=== PATIENT | male | born 1980 | race Caucasian/White ===

== ENCOUNTER 2016-12-18 21:00 | Inpatient (IN) | payer MEDICAID ==
[~2016-12-18] VITALS: Ht 185.4 cm; Wt 116.0 kg
[~2016-12-18 21:00] MED LIST: DOXY-168 PO; FURO-93 PO; LORA-445 PO; SULF1TAB24 PO; TRAZ100T15 PO; valium; zoloft
[2016-12-18] MEDS ORDERED: FAMOTIDINE 20 MG/2 ML ONE (21:43)
[2016-12-18] MEDS ORDERED: MAALOX/HYOSCYAMINE/LIDOCAINE 45 ML BOTTLE ONE (21:43)
[2016-12-18] MEDS ORDERED: ONDANSETRON 2MG/ML, 2ML ONE (21:43)
[2016-12-18 22:00] LABS: ASPARTATE AMINO TRANSFERASE 115 U/L (15-37); BLOOD UREA NITROGEN 13 mg/dL (7-18)
[2016-12-18] MEDS ORDERED: FAMOTIDINE 20 MG/2 ML IVP ONE (22:00)
[2016-12-18] MEDS ORDERED: MAALOX/HYOSCYAMINE/LIDOCAINE 45 ML BOTTLE PO ONE (22:00)
[2016-12-18] MEDS ORDERED: ONDANSETRON 2MG/ML, 2ML IVPush ONE (22:00)
[2016-12-18] MEDS ORDERED: SODIUM CHLORIDE 0.9% 1,000ML IVBOLUS ONE (22:00)
[2016-12-18 22:33] LABS: IS PT STATUS REG ER OR PRE ER? YES
[2016-12-18] MEDS ORDERED: SODIUM CHLORIDE 0.9% 1,000 ML IV ONE (23:04)
[2016-12-18] MEDS ORDERED: PROMETHAZINE 25 MG/ML, 1ML IM PRN (23:30)
[2016-12-18] MEDS ORDERED: ONDANSETRON 2MG/ML, 2ML IVPush PRN (23:30)
[2016-12-18] MEDS ORDERED: THYROID MED (23:53)
[2016-12-19] MEDS ORDERED: POTASSIUM CHLORIDE 10 MEQ, MVI ADULT 10 ML, FOLIC ACID 1 MG, MAGNESIUM SULFATE 1 GM in ... IV SCH (00:40)
[2016-12-19] MEDS ORDERED: ONDANSETRON 2MG/ML, 2ML ONE (00:42)
[2016-12-19] MEDS ORDERED: PROMETHAZINE 12.5 MG SUPP PR PRN (01:00)
[2016-12-19] MEDS ORDERED: ONDANSETRON 2MG/ML, 2ML IV PRN (01:00)
[2016-12-19] MEDS ORDERED: DIPHENHYDRAMINE 50 MG CAPSULE PO PRN (01:00)
[2016-12-19] MEDS ORDERED: LORazepam 2 MG/ML, 1ML IV PRN ×5 (01:00)
[2016-12-19] MEDS ORDERED: ALUMINUM/MAG/SIMETHICONE 30 ML UDC PO PRN (01:00)
[2016-12-19] MEDS ORDERED: NICOTINE 7 MG/24 HR PATCH.TD24 TD SCH (01:00)
[2016-12-19] MEDS ORDERED: HEPARIN 5,000 UNITS/ML, 1ML ONE ×2 (01:26→12:11)
[2016-12-19] MEDS: HEPARIN 5,000 UNITS/ML, 1ML SQ SCH ×2 (02:22→13:25)
[2016-12-19] MEDS ORDERED: MORPHINE SULFATE 4 MG/ML, 1ML ONE ×3 (03:13→13:19)
[2016-12-19] MEDS ORDERED: DIPHENHYDRAMINE 50 MG CAPSULE ONE (03:14)
[2016-12-19] MEDS: MORPHINE SULFATE 4 MG/ML, 1ML IVPush PRN ×3 (03:25→13:24)
[2016-12-19 05:17] LABS: IS PT STATUS REG ER OR PRE ER? YES
[2016-12-19] MEDS ORDERED: PANTOPRAZOLE 40 MG IV IVPush SCH (07:30)
[2016-12-19] MEDS ORDERED: PANTOPRAZOLE 40 MG IV ONE (07:45)
[2016-12-19] MEDS ORDERED: MAGNESIUM CHLORIDE 64 MG TABLET.DR PO SCH (09:00)
[2016-12-19] MEDS ORDERED: FUROSEMIDE 20 MG TABLET PO SCH (09:00)
[2016-12-19 10:13] LABS: IS PT STATUS REG ER OR PRE ER? NO
[2016-12-19] MEDS ORDERED: REGADENOSON 0.4 MG/5 ML SYRINGE ONE (10:50)
[2016-12-19] MEDS ORDERED: CEFAZOLIN PMX 1GM/50ML 50 ML ONE (13:40)
[2016-12-19] MEDS ORDERED: SULFAMETH./TRIMETHOPRIM DS 800MG/160MG TABLET ONE (13:40)
[2016-12-19 13:56] VITALS: BP 117/65
[2016-12-19] MEDS ORDERED: TRAM50TA2 PO (14:09)
[2016-12-19] MEDS ORDERED: OMEP-110 PO (14:09)
[2016-12-19] MEDS ORDERED: POTA10TA5 PO (15:37)
[2016-12-20] MEDS ORDERED: POTASSIUM CHLORIDE 20 MEQ, MVI ADULT 10 ML, FOLIC ACID 1 MG, MAGNESIUM SULFATE 1 GM in ... IV SCH (00:40)
== END 2016-12-19 16:27 | disposition home or self-care (01) | DRG 392 ==
LOC: ED 22:54 → EDIP 23:04
PROVIDERS: ADMIT Internal Medicine; ATTEND Internal Medicine
DX: K21.9 Gastro-esophageal reflux disease without esophagitis (principal); E44.1 Mild protein-calorie malnutrition; E11.9 Type 2 diabetes mellitus without complications; E66.9 Obesity, unspecified; F10.20 Alcohol dependence, uncomplicated; F17.210 Nicotine dependence, cigarettes, uncomplicated; I10 Essential (primary) hypertension; K29.20 Alcoholic gastritis without bleeding; K70.30 Alcoholic cirrhosis of liver without ascites; Z80.9 Family history of malignant neoplasm, unspecified; Z83.3 Family history of diabetes mellitus; Z88.1 Allergy status to other antibiotic agents; Z88.0 Allergy status to penicillin; Z68.33 Body mass index [BMI] 33.0-33.9, adult
CPT/HCPCS: 36415; 71010; 78452; 80053; 80307; 83690; 83735; 83880; 84439; 84443; 84484; 85025; 93005; 93017; 93970; 99285; J1644; J2405; J2785; A9502; C9113; C9898; J7030; S0028

== ENCOUNTER → 2017-07-01 | Outpatient (CLI) | payer MEDICAID ==
[~2017-07-01] MED LIST changes: +ALPR0.254 PO; +ASPI-621 PO; -DOXY-168 PO; +DOXY100T10 PO; +FURO20TA3 PO; +GABA300C10 PO; +LACT10SO28 PO; +LEVO75TA5 PO; +OMEP-110 PO; +POTA10TA5 PO; +SPIR25TA3 PO; +THYROID MED; +TRAM50TA2 PO; +TRAZ50TA18 PO
== END | disposition home or self-care (01) ==
LOC: CARD 15:13
PROVIDERS: ATTEND Internal Medicine Cardiovascular Disease
DX: I27.0 Primary pulmonary hypertension (principal)
CPT/HCPCS: 94060; 94726; 94729

== ENCOUNTER 2017-07-07 11:17 | Day surgery (SDC) | payer MEDICAID ==
[2017-07-04 14:16] VITALS: BP 129/90
[2017-07-04 14:54] LABS: BASOPHILS # (AUTO) 0.03 x10^3/uL (0-0.1); BASOPHILS % (AUTO) 1 % (0-1); EOSINOPHILS # (AUTO) 0.09 x10^3/uL (0-0.4); EOSINOPHILS % (AUTO) 2 % (1-7); LYMPHOCYTES # (AUTO) 1.48 x10^3/uL (1-3.4); LYMPHOCYTES % (AUTO) 31 % (22-44); MD NO; MEAN CORPUSCULAR HEMOGLOBIN 31.5 pg (27.5-34.5); MEAN CORPUSCULAR HGB CONC 34.9 g/dL (33.2-36.2); MEAN PLATELET VOLUME 9.4 fL (7.4-10.4); MONOCYTES # (AUTO) 0.38 x10^3/uL (0.2-0.8); MONOCYTES % (AUTO) 8 % (2-9); NEUTROPHILS # (AUTO) 2.85 x10^3/uL (1.8-6.8); NEUTROPHILS % (AUTO) 59 % (42-75); PLATELET COUNT 113 x10^3/uL (130-400); RED CELL DISTRIBUTION WIDTH 16.2 % (9.4-14.8)
[2017-07-04 14:59] LABS: INTERNATIONAL NORMALIZED RATIO 1.29 (0.93-1.1); PROTHROMBIN TIME 13.3 Seconds (9.6-11.5)
[2017-07-04 15:02] LABS: ANION GAP 10 mmol/L (5-15); CALCIUM 8.3 mg/dL (8.5-10.1); CHLORIDE 109 mmol/L (98-107)
[~2017-07-07] VITALS: Ht 185.4 cm; Wt 122.7 kg
[2017-07-07] MEDS ORDERED: SODIUM CHLORIDE 0.9% 1,000 ML IV ONE (11:36)
[2017-07-07] MEDS ORDERED: DIPHENHYDRAMINE 50 MG/ML, 1ML ONE (11:52)
[2017-07-07] MEDS ORDERED: SODIUM CHLORIDE 0.9% 500 ML IV SCH (12:00)
[2017-07-07] MEDS ORDERED: DIPHENHYDRAMINE 50 MG/ML, 1ML IVPush ONE (12:00)
[2017-07-07] MEDS ORDERED: METO50TA82 PO (12:13)
[2017-07-07] MEDS ORDERED: MIDAZOLAM 1 MG/ML, 2ML ONE ×2 (13:59→14:21)
[2017-07-07] MEDS ORDERED: FENTANYL PF 100 MCG/2ML ONE (14:00)
[2017-07-07] MEDS ORDERED: LIDOCAINE 2%, 20ML ONE (14:00)
[2017-07-07] MEDS ORDERED: VERAPAMIL 2.5 MG/ML, 2ML ONE (14:24)
[2017-07-07] MEDS ORDERED: HEPARIN 1,000 UNITS/ML, 10ML ONE (14:25)
[2017-07-07] MEDS ORDERED: ADENOSINE IV PRN (15:00)
[2017-07-07] MEDS ORDERED: SODIUM CHLORIDE 0.9% IV PRN (15:00)
[2017-07-07] MEDS ORDERED: SODIUM CHLORIDE 0.9% 1,000 ML IV SCH (15:19)
[2017-07-07] MEDS ORDERED: FENTANYL PF 100 MCG/2ML IVPush PRN (16:00)
[2017-07-07] MEDS ORDERED: NEOSPORIN OINT. PKT 1 PACKET TP ONE (17:30)
== END 2017-07-07 18:25 ==
LOC: CACL 11:17
PROVIDERS: ATTEND Internal Medicine Cardiovascular Disease
DX: I27.0 Primary pulmonary hypertension (principal); Z79.82 Long term (current) use of aspirin; Z88.0 Allergy status to penicillin; Z72.89 Other problems related to lifestyle; Z79.01 Long term (current) use of anticoagulants
CPT/HCPCS: 36415; 80048; 83880; 85025; 85610; 85730; 93460; 93463; 99156; 99157; C1769; C1894; J1200; J1644; J2250; J3010; J3490; Q9967

== ENCOUNTER → 2018-06-11 | Outpatient (CLI) | payer MEDICAID ==
[~2018-06-11] MED LIST changes: -ASPI-621 PO; +ASPI81TA45 PO; +BUPIVACAINE 0.25% ONE; +EPINEPHRINE 1 MG/ML, 1ML ONE; +INDIGO CARMINE 0.8%, 5ML ONE; +METO50TA82 PO; -SPIR25TA3 PO; +SPIR25TA5 PO; +THROMBIN 5,000 UNIT VIAL TP ONE; +TRAZ-137 PO; -TRAZ100T15 PO; -TRAZ50TA18 PO; +TRAZ50TA66 PO
== END | disposition home or self-care (01) ==
LOC: CVU 08:13
PROVIDERS: ATTEND Internal Medicine Cardiovascular Disease
DX: I08.1 Rheumatic disorders of both mitral and tricuspid valves (principal); I27.0 Primary pulmonary hypertension
CPT/HCPCS: 0399T; 93306; J0171; J3490

== ENCOUNTER 2018-07-26 12:42 | Inpatient (IN) | payer MEDICAID ==
[~2018-07-26] VITALS: Ht 185.4 cm; Wt 143.0 kg
[~2018-07-26 12:42] MED LIST changes: -BUPIVACAINE 0.25% ONE; -EPINEPHRINE 1 MG/ML, 1ML ONE; -INDIGO CARMINE 0.8%, 5ML ONE; -THROMBIN 5,000 UNIT VIAL TP ONE
--- NOTE | 2018-07-26 12:55 | NUR ---
PT TO LOBBY IN .
[2018-07-26] MEDS ORDERED: ONDANSETRON 2MG/ML, 2ML IVPush ONE (13:30)
[2018-07-26 13:49] LABS: ALANINE AMINOTRANSFERASE 30 U/L (12-78); ALBUMIN 2.8 g/dL (3.4-5.0); ANION GAP 8 mmol/L (5-15); CALCIUM 8.1 mg/dL (8.5-10.1); CHLORIDE 110 mmol/L (98-107); CREATININE 0.79 mg/dL (0.7-1.3)
[2018-07-26] MEDS ORDERED: MORPHINE SULFATE 4 MG/ML, 1ML ONE ×2 (13:49→15:07)
[2018-07-26] MEDS: MORPHINE SULFATE 4 MG/ML, 1ML IVPush PRN ×2 (13:51→15:10)
[2018-07-26 13:52] LABS: ALKALINE PHOSPHATASE 88 U/L (45-117); BASOPHILS # (AUTO) 0.01 x10^3/uL (0-0.1); BASOPHILS % (AUTO) 0 % (0-1); BILIRUBIN,TOTAL 1.4 mg/dL (0.2-1.0); EOSINOPHILS # (AUTO) 0.02 x10^3/uL (0-0.4); EOSINOPHILS % (AUTO) 1 % (1-7); LYMPHOCYTES # (AUTO) 0.69 x10^3/uL (1-3.4); LYMPHOCYTES % (AUTO) 16 % (22-44); MD SCAN; MEAN CORPUSCULAR HEMOGLOBIN 30.1 pg (27.5-34.5); MEAN CORPUSCULAR HGB CONC 34.2 g/dL (33.2-36.2); MEAN CORPUSCULAR VOLUME 88.2 fL (81-97); MEAN PLATELET VOLUME 8.6 fL (7.4-10.4); MONOCYTES # (AUTO) 0.34 x10^3/uL (0.2-0.8); MONOCYTES % (AUTO) 8 % (2-9); NEUTROPHILS # (AUTO) 3.29 x10^3/uL (1.8-6.8); NEUTROPHILS % (AUTO) 76 % (42-75); PLATELET COUNT 93 x10^3/uL (130-400); RED BLOOD COUNT 4.57 x10^6/uL (4.38-5.82); RED CELL DISTRIBUTION WIDTH 15.5 % (9.4-14.8); TOTAL PROTEIN 6.7 g/dL (6.4-8.2)
[2018-07-26 13:57] LABS: INTERNATIONAL NORMALIZED RATIO 1.26 (0.93-1.1); PROTHROMBIN TIME 13.2 Seconds (9.6-11.5)
[2018-07-26] MEDS ORDERED: ACETAMINOPHEN 500 MG TABLET ONE (14:26)
[2018-07-26] MEDS ORDERED: ACETAMINOPHEN 500 MG TABLET PO ONE (14:30)
[2018-07-26] MEDS ORDERED: SODIUM CHLORIDE 0.9% 1,000ML IVBOLUS ONE (14:30)
--- NOTE | 2018-07-26 14:30 | NUR ---
HANDOFF REPORT FROM JONATHAN MUNIZ. PT RESTING ON GURCECILIA. MEDICATED FOR FEVER. IVF INFUSING. SPO2 IN PLACE. PT RESTING ON GURYELLOW SPRINGS. CALL LIGHT IN REACH. AWAITING US RESULTS.
[2018-07-26] MEDS ORDERED: LIDOCAINE 1%-EPI 1:100K, 20ML INFIL ONE (15:00)
[2018-07-26] MEDS ORDERED: CLINDAMYCIN PMX 900MG/50ML 50 ML IV ONE (15:00)
[2018-07-26] MEDS ORDERED: LIDOCAINE-MPF 1%, 5ML ONE (15:07)
[2018-07-26] MEDS ORDERED: LIDOCAINE 1%-EPI 1:100K, 20ML ONE (15:14)
[2018-07-26] MEDS ORDERED: CLINDAMYCIN PMX 900MG/50ML 50 ML ONE (15:45)
--- NOTE | 2018-07-26 15:52 | NUR ---
IV ABX INFUSING PER ORDER. MD TO BEDSIDE TO UPDATE PT ON POC AND PT AGREES. PT RESTING ON GURNEY. CALL LIGHT IN REACH. PT TO BE ADMIT. ALL CONCERNS ADRESSED.
[2018-07-26] MEDS ORDERED: POLYETHYLENE GLYCOL 17 GM PACKET PO PRN (16:30)
[2018-07-26] MEDS ORDERED: BISACODYL 10 MG SUPP PR PRN (16:30)
[2018-07-26] MEDS ORDERED: hydrALAzine 20 MG/ML, 1ML IVPush PRN (16:30)
[2018-07-26] MEDS ORDERED: ONDANSETRON 2MG/ML, 2ML IVPush PRN (16:30)
[2018-07-26] MEDS ORDERED: BACLOFEN 10 MG TABLET PO PRN (16:30)
[2018-07-26] MEDS ORDERED: DOCUSATE 100 MG CAPSULE PO PRN (16:30)
[2018-07-26] MEDS ORDERED: ACETAMINOPHEN 325 MG TABLET PO PRN (16:30)
[2018-07-26] MEDS ORDERED: GABAPENTIN 300 MG CAPSULE PO PRN (16:30)
[2018-07-26] MEDS ORDERED: VANCOMYCIN PER PHARMACY MC PRN (16:30)
[2018-07-26] MEDS ORDERED: TRAZODONE 50MG TABLET PO PRN (17:00)
--- NOTE | 2018-07-26 17:18 | NUR ---
FLOAT RN:PATIENT PLACED ON 2L NC AFTER DESAT TO 88% WITH GOOD WAVEFORM. PATIENT WAKES EASILY AND SATURATION REUTRNS TO 92%. PRIMARY RN, HI MARETL
--- NOTE | 2018-07-26 17:29 | NUR ---
REPORT TO DIDI MUNIZ.
[2018-07-26 18:34] VITALS: BP 113/60
[2018-07-26] MEDS ORDERED: PHARMACOKINETIC MONITORING MC PRN (19:00)
[2018-07-26] MEDS ORDERED: VANCOMYCIN 2,500 MG in SODIUM CHLORIDE 0.9% 500 ML IV ONE (19:00)
[2018-07-26] MEDS ORDERED: PHARMACOKINETIC CONSULTATION MC ONE (19:00)
[2018-07-26] MEDS: ENOXAPARIN 40 MG/0.4 ML SQ SCH (20:04)
[2018-07-26] MEDS: CEFTRIAXONE PMX 1GM/50ML 50 ML IV SCH (20:04)
[2018-07-26] MEDS: NS + 20MEQ KCL 1,000 ML IV SCH (20:04)
[2018-07-26 22:10] LABS: RAPID INFLUENZA A Negative (Negative); RAPID INFLUENZA B Negative (Negative)
[2018-07-26] MEDS: LACTULOSE 10 GM/15 ML UDC PO SCH (23:21)
[2018-07-26] MEDS: METOPROLOL TARTRATE 50 MG TABLET PO SCH (23:22)
[2018-07-27 02:47] VITALS: BP 125/64
[2018-07-27 05:28] LABS: MEAN CORPUSCULAR HEMOGLOBIN 30.2 pg (27.5-34.5); MEAN CORPUSCULAR HGB CONC 34.2 g/dL (33.2-36.2); MEAN CORPUSCULAR VOLUME 88.3 fL (81-97); MEAN PLATELET VOLUME 8.6 fL (7.4-10.4); PLATELET COUNT 93 x10^3/uL (130-400); RED BLOOD COUNT 4.16 x10^6/uL (4.38-5.82); RED CELL DISTRIBUTION WIDTH 15.7 % (9.4-14.8)
[2018-07-27 05:30] LABS: ALBUMIN 2.5 g/dL (3.4-5.0); ANION GAP 7 mmol/L (5-15); CALCIUM 7.5 mg/dL (8.5-10.1); CHLORIDE 112 mmol/L (98-107)
[2018-07-27 05:36] LABS: ALANINE AMINOTRANSFERASE 25 U/L (12-78); ALKALINE PHOSPHATASE 81 U/L (45-117); BILIRUBIN,TOTAL 1.5 mg/dL (0.2-1.0); CREATININE 0.72 mg/dL (0.7-1.3); TOTAL PROTEIN 6.1 g/dL (6.4-8.2)
[2018-07-27] MEDS: GABAPENTIN 300 MG CAPSULE PO PRN ×2 (05:37→16:44)
[2018-07-27 05:56] LABS: BASOPHILS # (AUTO) 0.02 x10^3/uL (0-0.1); BASOPHILS % (AUTO) 0 % (0-1); EOSINOPHILS # (AUTO) 0.07 x10^3/uL (0-0.4); EOSINOPHILS % (AUTO) 2 % (1-7); LYMPHOCYTES # (AUTO) 0.69 x10^3/uL (1-3.4); LYMPHOCYTES % (AUTO) 20 % (22-44); MD SCAN; MONOCYTES # (AUTO) 0.29 x10^3/uL (0.2-0.8); MONOCYTES % (AUTO) 8 % (2-9); NEUTROPHILS # (AUTO) 2.41 x10^3/uL (1.8-6.8); NEUTROPHILS % (AUTO) 70 % (42-75)
[2018-07-27] MEDS: KETOROLAC 30 MG/1 ML IV PRN ×2 (06:26→14:18)
[2018-07-27 06:36] VITALS: BP 119/76
[2018-07-27] MEDS: FUROSEMIDE 20 MG TABLET PO SCH (08:56)
[2018-07-27] MEDS: ASPIRIN 81 MG TABLET EC PO SCH (08:56)
[2018-07-27] MEDS: METOPROLOL TARTRATE 50 MG TABLET PO SCH ×2 (08:56→21:07)
[2018-07-27] MEDS: SPIRONOLACTONE 25 MG TABLET PO SCH (08:57)
[2018-07-27] MEDS: LEVOTHYROXINE 75 MCG TABLET PO SCH (08:57)
[2018-07-27] MEDS: LACTULOSE 10 GM/15 ML UDC PO SCH ×2 (08:57→21:06)
[2018-07-27] MEDS: NS + 20MEQ KCL 1,000 ML IV SCH (09:00)
[2018-07-27] MEDS: VANCOMYCIN 2,000 MG in SODIUM CHLORIDE 0.9% 500 ML IV SCH ×2 (10:26→22:10)
[2018-07-27 14:04] VITALS: BP 132/70
[2018-07-27] MEDS: CEFTRIAXONE PMX 1GM/50ML 50 ML IV SCH (16:44)
[2018-07-27 19:22] VITALS: BP 130/82
[2018-07-27] MEDS: ENOXAPARIN 40 MG/0.4 ML SQ SCH (21:06)
[2018-07-28 01:26] VITALS: BP 131/69
[2018-07-28] MEDS: KETOROLAC 30 MG/1 ML IV PRN ×2 (02:48→11:38)
[2018-07-28] MEDS: GABAPENTIN 300 MG CAPSULE PO PRN ×2 (04:39→16:22)
[2018-07-28 05:26] LABS: MEAN CORPUSCULAR VOLUME 88.2 fL (81-97); MEAN PLATELET VOLUME 8.5 fL (7.4-10.4); PLATELET COUNT 88 x10^3/uL (130-400); RED BLOOD COUNT 4.03 x10^6/uL (4.38-5.82); RED CELL DISTRIBUTION WIDTH 15.5 % (9.4-14.8)
[2018-07-28 05:32] LABS: ANION GAP 8 mmol/L (5-15); CALCIUM 7.5 mg/dL (8.5-10.1); CHLORIDE 115 mmol/L (98-107); CREATININE 0.71 mg/dL (0.7-1.3)
[2018-07-28 06:11] LABS: BASOPHILS # (AUTO) 0.01 x10^3/uL (0-0.1); BASOPHILS % (AUTO) 1 % (0-1); EOSINOPHILS # (AUTO) 0.07 x10^3/uL (0-0.4); EOSINOPHILS % (AUTO) 3 % (1-7); LYMPHOCYTES # (AUTO) 0.59 x10^3/uL (1-3.4); LYMPHOCYTES % (AUTO) 24 % (22-44); MD SCAN; MONOCYTES % (AUTO) 8 % (2-9); NEUTROPHILS # (AUTO) 1.65 x10^3/uL (1.8-6.8); NEUTROPHILS % (AUTO) 65 % (42-75)
[2018-07-28] MEDS: LEVOTHYROXINE 75 MCG TABLET PO SCH (06:15)
[2018-07-28 08:40] VITALS: BP 145/73
[2018-07-28] MEDS: ASPIRIN 81 MG TABLET EC PO SCH (09:00)
[2018-07-28] MEDS: LACTULOSE 10 GM/15 ML UDC PO SCH ×2 (09:00→20:01)
[2018-07-28] MEDS: METOPROLOL TARTRATE 50 MG TABLET PO SCH ×2 (09:00→20:01)
[2018-07-28] MEDS: SPIRONOLACTONE 25 MG TABLET PO SCH (09:00)
[2018-07-28] MEDS: FUROSEMIDE 20 MG TABLET PO SCH (09:01)
[2018-07-28] MEDS ORDERED: GADOBUTROL 10 MMOL/10 ML PFS ONE (10:43)
[2018-07-28] MEDS: VANCOMYCIN 2,000 MG in SODIUM CHLORIDE 0.9% 500 ML IV SCH (11:38)
[2018-07-28 13:44] VITALS: BP 133/74
[2018-07-28] MEDS: CEFTRIAXONE PMX 1GM/50ML 50 ML IV SCH (16:22)
[2018-07-28 19:05] VITALS: BP 130/75
[2018-07-28] MEDS: ENOXAPARIN 40 MG/0.4 ML SQ SCH (19:34)
[2018-07-29] MEDS: VANCOMYCIN 2,000 MG in SODIUM CHLORIDE 0.9% 500 ML IV SCH ×3 (00:03→23:47)
[2018-07-29 02:00] VITALS: BP 127/77
[2018-07-29] MEDS: KETOROLAC 30 MG/1 ML IV PRN ×3 (05:33→21:04)
[2018-07-29] MEDS: LEVOTHYROXINE 75 MCG TABLET PO SCH (05:33)
[2018-07-29 05:51] LABS: BASOPHILS # (AUTO) 0.02 x10^3/uL (0-0.1); BASOPHILS % (AUTO) 1 % (0-1); EOSINOPHILS # (AUTO) 0.07 x10^3/uL (0-0.4); EOSINOPHILS % (AUTO) 2 % (1-7); LYMPHOCYTES # (AUTO) 0.64 x10^3/uL (1-3.4); LYMPHOCYTES % (AUTO) 21 % (22-44); MD NO; MEAN CORPUSCULAR HEMOGLOBIN 29.9 pg (27.5-34.5); MEAN CORPUSCULAR HGB CONC 34.3 g/dL (33.2-36.2); MEAN CORPUSCULAR VOLUME 87.1 fL (81-97); MEAN PLATELET VOLUME 8.3 fL (7.4-10.4); MONOCYTES # (AUTO) 0.22 x10^3/uL (0.2-0.8); MONOCYTES % (AUTO) 7 % (2-9); NEUTROPHILS # (AUTO) 2.11 x10^3/uL (1.8-6.8); NEUTROPHILS % (AUTO) 69 % (42-75); PLATELET COUNT 123 x10^3/uL (130-400); RED BLOOD COUNT 4.31 x10^6/uL (4.38-5.82); RED CELL DISTRIBUTION WIDTH 15.6 % (9.4-14.8)
[2018-07-29 05:54] LABS: ALBUMIN 2.5 g/dL (3.4-5.0); ANION GAP 7 mmol/L (5-15); CALCIUM 7.7 mg/dL (8.5-10.1); CHLORIDE 115 mmol/L (98-107)
[2018-07-29 06:00] LABS: ALANINE AMINOTRANSFERASE 26 U/L (12-78); ALKALINE PHOSPHATASE 81 U/L (45-117); CREATININE 0.71 mg/dL (0.7-1.3); TOTAL PROTEIN 6.3 g/dL (6.4-8.2)
[2018-07-29 08:41] VITALS: BP 150/81
[2018-07-29] MEDS: SPIRONOLACTONE 25 MG TABLET PO SCH (08:46)
[2018-07-29] MEDS: METOPROLOL TARTRATE 50 MG TABLET PO SCH ×2 (08:46→21:04)
[2018-07-29] MEDS: LACTULOSE 10 GM/15 ML UDC PO SCH ×2 (08:46→21:04)
[2018-07-29] MEDS: ASPIRIN 81 MG TABLET EC PO SCH (08:46)
[2018-07-29] MEDS: FUROSEMIDE 20 MG TABLET PO SCH (08:47)
[2018-07-29] MEDS: GABAPENTIN 300 MG CAPSULE PO PRN ×2 (08:49→17:19)
[2018-07-29 17:08] VITALS: BP 154/83
[2018-07-29] MEDS: CEFTRIAXONE PMX 1GM/50ML 50 ML IV SCH (17:14)
[2018-07-29 19:44] VITALS: BP 125/82
[2018-07-29] MEDS: ENOXAPARIN 40 MG/0.4 ML SQ SCH (20:00)
[2018-07-29 21:02] VITALS: BP 145/80
[2018-07-30 01:16] VITALS: BP 147/87
[2018-07-30] MEDS: GABAPENTIN 300 MG CAPSULE PO PRN ×2 (02:14→10:55)
[2018-07-30 06:01] LABS: BASOPHILS # (AUTO) 0.01 x10^3/uL (0-0.1); BASOPHILS % (AUTO) 0 % (0-1); EOSINOPHILS # (AUTO) 0.08 x10^3/uL (0-0.4); EOSINOPHILS % (AUTO) 3 % (1-7); LYMPHOCYTES # (AUTO) 0.58 x10^3/uL (1-3.4); LYMPHOCYTES % (AUTO) 18 % (22-44); MD NO; MEAN CORPUSCULAR HEMOGLOBIN 29.8 pg (27.5-34.5); MEAN CORPUSCULAR HGB CONC 34.3 g/dL (33.2-36.2); MEAN CORPUSCULAR VOLUME 86.8 fL (81-97); MEAN PLATELET VOLUME 8.3 fL (7.4-10.4); MONOCYTES # (AUTO) 0.22 x10^3/uL (0.2-0.8); MONOCYTES % (AUTO) 7 % (2-9); NEUTROPHILS % (AUTO) 72 % (42-75); PLATELET COUNT 127 x10^3/uL (130-400); RED BLOOD COUNT 4.37 x10^6/uL (4.38-5.82); RED CELL DISTRIBUTION WIDTH 14.9 % (9.4-14.8)
[2018-07-30 06:07] LABS: ALBUMIN 2.5 g/dL (3.4-5.0); ANION GAP 8 mmol/L (5-15); CALCIUM 8.3 mg/dL (8.5-10.1); CHLORIDE 114 mmol/L (98-107)
[2018-07-30 06:12] LABS: ALANINE AMINOTRANSFERASE 24 U/L (12-78); ALKALINE PHOSPHATASE 88 U/L (45-117); BILIRUBIN,TOTAL 1.5 mg/dL (0.2-1.0); TOTAL PROTEIN 6.4 g/dL (6.4-8.2)
[2018-07-30] MEDS: LEVOTHYROXINE 75 MCG TABLET PO SCH (06:26)
[2018-07-30 07:48] VITALS: BP 180/101
[2018-07-30] MEDS: METOPROLOL TARTRATE 50 MG TABLET PO SCH (08:30)
[2018-07-30] MEDS: LACTULOSE 10 GM/15 ML UDC PO SCH (08:30)
[2018-07-30] MEDS: ASPIRIN 81 MG TABLET EC PO SCH (08:30)
[2018-07-30] MEDS: SPIRONOLACTONE 25 MG TABLET PO SCH (08:30)
[2018-07-30] MEDS: FUROSEMIDE 20 MG TABLET PO SCH (08:31)
[2018-07-30] MEDS: KETOROLAC 30 MG/1 ML IV PRN ×2 (08:35→16:31)
[2018-07-30] MEDS ORDERED: CEPH-368 PO (09:46)
[2018-07-30 10:58] VITALS: BP 161/85
[2018-07-30] MEDS: VANCOMYCIN 2,000 MG in SODIUM CHLORIDE 0.9% 500 ML IV SCH (11:03)
[2018-07-30 13:06] VITALS: BP 160/88
[2018-07-30] MEDS: CEFTRIAXONE PMX 1GM/50ML 50 ML IV SCH (16:31)
[2018-07-30 17:06] VITALS: BP 160/85
== END 2018-07-30 18:00 | disposition home or self-care (01) | DRG 603 ==
LOC: ED 13:50 → EDIP 16:19 → 4NOR 18:17
PROVIDERS: ADMIT Internal Medicine; ATTEND Internal Medicine
DX: L03.116 Cellulitis of left lower limb (principal); E44.0 Moderate protein-calorie malnutrition; Z68.41 Body mass index [BMI] 40.0-44.9, adult; L02.416 Cutaneous abscess of left lower limb; D69.6 Thrombocytopenia, unspecified; D72.819 Decreased white blood cell count, unspecified; E11.9 Type 2 diabetes mellitus without complications; I11.9 Hypertensive heart disease without heart failure; I89.1 Lymphangitis; K70.30 Alcoholic cirrhosis of liver without ascites; Z82.49 Family history of ischemic heart disease and other diseases of the circulatory system; Z87.891 Personal history of nicotine dependence; Z83.3 Family history of diabetes mellitus; B95.61 Methicillin susceptible Staphylococcus aureus infection as the cause of diseases classified elsewhere
CPT/HCPCS: 10060; 36415; 80048; 80053; 80202; 83605; 84145; 85025; 85610; 87040; 87070; 87075; 87077; 87186; 87205; 87400; 96365; 96366; 96375; 96376; A9585; G0378; J0696; J1650; J1885; J3370; J3480; J7030; J7040

== ENCOUNTER 2018-11-20 11:58 | Emergency (ER) | payer MEDICAID ==
[~2018-11-20] VITALS: Ht 154.9 cm; Wt 123.0 kg
[~2018-11-20 11:58] MED LIST changes: +CEPH-368 PO
--- NOTE | 2018-11-20 12:13 | NUR ---
private duty nurse applied. pt reports right cp 08/09.
--- NOTE | 2018-11-20 12:13 | NUR ---
PT recieved from [facility]. c/o right sided CP that radiates to right arm. Prehospital meds recieved 324 ASA, 4mg zofran, and SL nitro. CP was 8/10 and after meds pain 2/10. pt has red lacy rash on right and left upper arms. pitting edema bilaterally. VS are stable and pt resting on gurney. blanket provided. no other requests at this time.
[2018-11-20] MEDS ORDERED: BUPR200T31 PO (12:26)
[2018-11-20] MEDS ORDERED: TADA20TA33 PO (12:26)
[2018-11-20] MEDS ORDERED: DULO60CA55 PO (12:26)
[2018-11-20] MEDS ORDERED: AMBR10TA3 PO (12:26)
[2018-11-20] MEDS ORDERED: HYDR50CA PO (12:26)
[2018-11-20] MEDS ORDERED: QUET50TA5 PO (12:26)
[2018-11-20 12:54] LABS: CHLORIDE 111 mmol/L (98-107)
[2018-11-20 13:06] LABS: ALANINE AMINOTRANSFERASE 21 U/L (12-78); ALBUMIN 3.4 g/dL (3.4-5.0); ALKALINE PHOSPHATASE 64 U/L (45-117); ANION GAP 10 mmol/L (5-15); BILIRUBIN,TOTAL 1.4 mg/dL (0.2-1.0); CALCIUM 8.6 mg/dL (8.5-10.1); CREATININE 0.79 mg/dL (0.7-1.3); TOTAL PROTEIN 6.2 g/dL (6.4-8.2); TROPONIN I < 0.015 ng/mL (0.000-0.045)
[2018-11-20 13:31] LABS: BASOPHILS # (AUTO) 0.01 x10^3/uL (0-0.1); BASOPHILS % (AUTO) 0 % (0-1); EOSINOPHILS # (AUTO) 0.04 x10^3/uL (0-0.4); EOSINOPHILS % (AUTO) 2 % (1-7); LYMPHOCYTES # (AUTO) 0.47 x10^3/uL (1-3.4); LYMPHOCYTES % (AUTO) 19 % (22-44); MD SCAN; MEAN CORPUSCULAR HEMOGLOBIN 29.2 pg (27.5-34.5); MEAN CORPUSCULAR HGB CONC 32.5 g/dL (33.2-36.2); MEAN CORPUSCULAR VOLUME 89.7 fL (81-97); MONOCYTES # (AUTO) 0.15 x10^3/uL (0.2-0.8); MONOCYTES % (AUTO) 6 % (2-9); NEUTROPHILS % (AUTO) 73 % (42-75); PLATELET COUNT 70 x10^3/uL (130-400); RED CELL DISTRIBUTION WIDTH 15.8 % (9.4-14.8)
[2018-11-20 13:58] VITALS: BP 121/73
--- NOTE | 2018-11-20 13:59 | NUR ---
PT resting on gurney. VS are stable. another blanket provided per pt request. 93% O2 sat on 5 L via nasal canula
== END 2018-11-20 14:47 | disposition home or self-care (01) ==
LOC: ED 12:32
DX: R07.2 Precordial pain (principal); D72.819 Decreased white blood cell count, unspecified; I10 Essential (primary) hypertension
CPT/HCPCS: 36415; 71045; 80053; 83880; 84484; 85025; 93005; 99284

== ENCOUNTER 2018-12-05 10:54 | Inpatient (IN) | payer MEDICAID ==
[~2018-12-05] VITALS: Ht 188 cm; Wt 118.4 kg
[~2018-12-05 10:54] MED LIST changes: +AMBR10TA3 PO; +BUPR200T31 PO; +DULO60CA55 PO; +HYDR50CA PO; +QUET50TA5 PO; +TADA20TA33 PO
[2018-12-05] MEDS ORDERED: SODIUM CHLORIDE FLUSH 10ML SYR IVF ONE (11:30)
[2018-12-05] MEDS ORDERED: LIDOCAINE 2%,20 ML JEL.PF.APP MM ONE (11:34)
[2018-12-05] MEDS ORDERED: CARI3CAP PO (12:07)
[2018-12-05] MEDS ORDERED: BUPR150T73 PO (12:07)
[2018-12-05 12:08] LABS: BASOPHILS # (AUTO) 0.01 x10^3/uL (0-0.1); BASOPHILS % (AUTO) 0 % (0-1); EOSINOPHILS # (AUTO) 0.05 x10^3/uL (0-0.4); EOSINOPHILS % (AUTO) 1 % (1-7); LYMPHOCYTES % (AUTO) 17 % (22-44); MD NO; MEAN CORPUSCULAR HEMOGLOBIN 29.5 pg (27.5-34.5); MEAN CORPUSCULAR VOLUME 89.3 fL (81-97); MEAN PLATELET VOLUME 7.7 fL (7.4-10.4); MONOCYTES # (AUTO) 0.26 x10^3/uL (0.2-0.8); MONOCYTES % (AUTO) 6 % (2-9); NEUTROPHILS # (AUTO) 3.11 x10^3/uL (1.8-6.8); NEUTROPHILS % (AUTO) 75 % (42-75); PLATELET COUNT 106 x10^3/uL (130-400); RED BLOOD COUNT 5.49 x10^6/uL (4.38-5.82); RED CELL DISTRIBUTION WIDTH 15.6 % (9.4-14.8)
[2018-12-05] MEDS ORDERED: METO25TA35 PO (12:08)
[2018-12-05] MEDS ORDERED: NALT50TA PO (12:10)
--- NOTE | 2018-12-05 12:10 | NUR ---
PT BACK TO ROOM [address] CHEST XRAY BEGINNING. MED REC COMPLETE.
[2018-12-05] MEDS ORDERED: DULO60CA55 PO (12:11)
[2018-12-05] MEDS ORDERED: TRAZ-137 PO (12:12)
[2018-12-05] MEDS ORDERED: RISP4TAB2 PO (12:13)
[2018-12-05 12:17] LABS: ALBUMIN 3.8 g/dL (3.4-5.0); ANION GAP 7 mmol/L (5-15); CALCIUM 9.4 mg/dL (8.5-10.1); CHLORIDE 113 mmol/L (98-107)
[2018-12-05 12:20] LABS: ALANINE AMINOTRANSFERASE 28 U/L (12-78); ALKALINE PHOSPHATASE 118 U/L (45-117); BILIRUBIN,TOTAL 2.6 mg/dL (0.2-1.0); CREATININE 1.13 mg/dL (0.7-1.3); TOTAL PROTEIN 7.7 g/dL (6.4-8.2)
[2018-12-05 12:37] LABS: ACETONE, SERUM Negative (Negative)
[2018-12-05 12:54] LABS: SALICYLATE LEVEL < 1.7 mg/dL (2.8-20.0)
[2018-12-05] MEDS ORDERED: LACTULOSE 20 GM/30 ML UDC PO SCH (13:00)
[2018-12-05 13:22] LABS: MICROSCOPIC INDICATED
[2018-12-05 13:23] LABS: CULTURE INDICATED? YES
[2018-12-05 13:26] LABS: AMPHETAMINE SCREEN, URINE Negative (Negative); BARBITURATE SCREEN, URINE Negative (Negative); BENZODIAZEPINE SCREEN, URINE Positive (Negative); CANNABINOID SCREEN, URINE Negative (Negative); COCAINE SCREEN, URINE Negative (Negative); METHADONE SCREEN, URINE Negative (Negative); OPIATE SCREEN, URINE Negative (Negative)
[2018-12-05] MEDS ORDERED: SODIUM CHLORIDE FLUSH 10ML SYR IVF PRN (13:30)
--- NOTE | 2018-12-05 14:19 | NUR ---
[facility] TELEPHONE HAND-OFF REPORT GIVEN TO CRISTY SPRINGER. PATIENT READY FOR HOSPITAL ROOM.
[2018-12-05 14:49] VITALS: BP 142/92
[2018-12-05] MEDS ORDERED: ONDANSETRON 2MG/ML, 2ML IVPush PRN (15:30)
[2018-12-05] MEDS ORDERED: ENALAPRILAT 1.25 MG/ML, 2ML IVPush PRN (15:30)
[2018-12-05] MEDS ORDERED: DEXTROSE 4 GM TAB.CHEW PO PRN (15:30)
[2018-12-05] MEDS ORDERED: GLUCAGON 1 MG IM PRN (15:30)
[2018-12-05] MEDS ORDERED: DEXTROSE 50%, 50ML SYRINGE IVPush PRN (15:30)
[2018-12-05] MEDS ORDERED: LABETALOL 5MG/ML, 20ML IVPush PRN (15:30)
[2018-12-05] MEDS ORDERED: ONDANSETRON ODT 4 MG PO PRN (15:30)
[2018-12-05] MEDS: INSULIN LISPRO 100 UNITS/ML, PEN SQ-INSULIN SCH ×2 (16:00→20:55)
[2018-12-05] MEDS: CEFTRIAXONE PMX 1GM/50ML 50 ML IV SCH (16:06)
[2018-12-05] MEDS: LACTULOSE 10 GM/15 ML UDC PO SCH ×2 (16:07→20:57)
[2018-12-05 16:37] LABS: INTERNATIONAL NORMALIZED RATIO 1.35 (0.93-1.1)
[2018-12-05 18:19] VITALS: BP 159/93
[2018-12-05 19:03] VITALS: BP 155/92
[2018-12-05] MEDS: METOPROLOL TARTRATE 25 MG TABLET PO SCH (20:56)
[2018-12-05] MEDS: SODIUM CHLORIDE FLUSH 10ML SYR IVF SCH (20:57)
[2018-12-06 00:25] VITALS: BP 134/76
[2018-12-06 05:20] LABS: BASOPHILS # (AUTO) 0.02 x10^3/uL (0-0.1); BASOPHILS % (AUTO) 0 % (0-1); EOSINOPHILS % (AUTO) 3 % (1-7); LYMPHOCYTES # (AUTO) 1.08 x10^3/uL (1-3.4); LYMPHOCYTES % (AUTO) 27 % (22-44); MD NO; MEAN CORPUSCULAR HEMOGLOBIN 29.6 pg (27.5-34.5); MEAN CORPUSCULAR HGB CONC 33.2 g/dL (33.2-36.2); MEAN CORPUSCULAR VOLUME 89.2 fL (81-97); MEAN PLATELET VOLUME 7.4 fL (7.4-10.4); MONOCYTES # (AUTO) 0.37 x10^3/uL (0.2-0.8); MONOCYTES % (AUTO) 9 % (2-9); NEUTROPHILS # (AUTO) 2.46 x10^3/uL (1.8-6.8); NEUTROPHILS % (AUTO) 61 % (42-75); PLATELET COUNT 102 x10^3/uL (130-400); RED BLOOD COUNT 5.25 x10^6/uL (4.38-5.82); RED CELL DISTRIBUTION WIDTH 15.5 % (9.4-14.8)
[2018-12-06] MEDS: LACTULOSE 10 GM/15 ML UDC PO SCH ×3 (05:20→16:00)
[2018-12-06] MEDS: ACETAMINOPHEN 325 MG TABLET PO PRN (05:20)
[2018-12-06 05:33] LABS: ALBUMIN 3.5 g/dL (3.4-5.0); ANION GAP 6 mmol/L (5-15); CHLORIDE 113 mmol/L (98-107)
[2018-12-06 05:36] LABS: ALANINE AMINOTRANSFERASE 25 U/L (12-78); ALKALINE PHOSPHATASE 112 U/L (45-117); BILIRUBIN,TOTAL 2.5 mg/dL (0.2-1.0); CREATININE 0.98 mg/dL (0.7-1.3); TOTAL PROTEIN 7.3 g/dL (6.4-8.2)
[2018-12-06] MEDS: INSULIN LISPRO 100 UNITS/ML, PEN SQ-INSULIN SCH ×4 (07:00→21:02)
[2018-12-06 08:30] VITALS: BP 158/64
[2018-12-06] MEDS: SODIUM CHLORIDE FLUSH 10ML SYR IVF SCH ×2 (09:00→21:07)
[2018-12-06] MEDS ORDERED: LACTULOSE 3.3 GM/5 ML ORAL.SOL RC ONE (09:30)
[2018-12-06] MEDS: HEPARIN 5,000 UNITS/ML, 1ML SQ SCH ×2 (09:51→19:40)
[2018-12-06] MEDS: METOPROLOL TARTRATE 25 MG TABLET PO SCH ×2 (09:51→21:06)
[2018-12-06 15:00] VITALS: BP 154/86
[2018-12-06] MEDS: CEFTRIAXONE PMX 1GM/50ML 50 ML IV SCH (15:38)
[2018-12-06] MEDS: POTASSIUM CHLORIDE 10 MEQ in D5%-0.45% NACL 1,000 ML IV SCH (18:01)
[2018-12-06 19:31] VITALS: BP 163/86
[2018-12-07 00:36] VITALS: BP 133/80
[2018-12-07] MEDS: HEPARIN 5,000 UNITS/ML, 1ML SQ SCH ×3 (03:29→20:28)
[2018-12-07 04:54] LABS: MEAN CORPUSCULAR HEMOGLOBIN 29.7 pg (27.5-34.5); MEAN CORPUSCULAR HGB CONC 33.5 g/dL (33.2-36.2); MEAN CORPUSCULAR VOLUME 88.7 fL (81-97); RED CELL DISTRIBUTION WIDTH 15.1 % (9.4-14.8)
[2018-12-07 05:07] LABS: ALBUMIN 3.2 g/dL (3.4-5.0); ANION GAP 6 mmol/L (5-15); CALCIUM 8.6 mg/dL (8.5-10.1); CHLORIDE 112 mmol/L (98-107)
[2018-12-07 05:12] LABS: ALANINE AMINOTRANSFERASE 23 U/L (12-78); ALKALINE PHOSPHATASE 107 U/L (45-117); BILIRUBIN,TOTAL 2.1 mg/dL (0.2-1.0); CREATININE 0.78 mg/dL (0.7-1.3); TOTAL PROTEIN 6.8 g/dL (6.4-8.2)
[2018-12-07 05:40] LABS: BASOPHILS # (AUTO) 0.02 x10^3/uL (0-0.1); BASOPHILS % (AUTO) 1 % (0-1); EOSINOPHILS # (AUTO) 0.11 x10^3/uL (0-0.4); EOSINOPHILS % (AUTO) 3 % (1-7); LYMPHOCYTES # (AUTO) 1.11 x10^3/uL (1-3.4); LYMPHOCYTES % (AUTO) 28 % (22-44); MD SCAN; MEAN PLATELET VOLUME 7.4 fL (7.4-10.4); MONOCYTES # (AUTO) 0.29 x10^3/uL (0.2-0.8); MONOCYTES % (AUTO) 7 % (2-9); NEUTROPHILS # (AUTO) 2.42 x10^3/uL (1.8-6.8); NEUTROPHILS % (AUTO) 61 % (42-75); PLATELET COUNT 97 x10^3/uL (130-400)
[2018-12-07 06:36] VITALS: BP 120/72
[2018-12-07] MEDS: INSULIN LISPRO 100 UNITS/ML, PEN SQ-INSULIN SCH ×4 (07:00→21:00)
[2018-12-07] MEDS: SODIUM CHLORIDE FLUSH 10ML SYR IVF SCH ×2 (09:00→20:29)
[2018-12-07 10:50] VITALS: BP 146/87
[2018-12-07] MEDS: METOPROLOL TARTRATE 25 MG TABLET PO SCH (10:51)
[2018-12-07] MEDS: LACTULOSE 20 GM/30 ML UDC PO PRN ×2 (10:54→20:28)
[2018-12-07] MEDS: POTASSIUM CHLORIDE 10 MEQ in D5%-0.45% NACL 1,000 ML IV SCH (11:06)
[2018-12-07 15:00] VITALS: BP 140/82
[2018-12-07 20:24] VITALS: BP 134/80
[2018-12-07] MEDS: ACETAMINOPHEN 325 MG TABLET PO PRN (20:28)
[2018-12-08 01:01] VITALS: BP 133/72
[2018-12-08] MEDS: POTASSIUM CHLORIDE 10 MEQ in D5%-0.45% NACL 1,000 ML IV SCH ×2 (01:38→16:10)
[2018-12-08] MEDS: HEPARIN 5,000 UNITS/ML, 1ML SQ SCH ×3 (04:07→21:16)
[2018-12-08 06:38] LABS: ALBUMIN 2.9 g/dL (3.4-5.0); ANION GAP 6 mmol/L (5-15); CALCIUM 8.1 mg/dL (8.5-10.1); CHLORIDE 110 mmol/L (98-107)
[2018-12-08 06:43] LABS: ALANINE AMINOTRANSFERASE 25 U/L (12-78); ALKALINE PHOSPHATASE 94 U/L (45-117); BILIRUBIN,TOTAL 1.9 mg/dL (0.2-1.0); CREATININE 0.69 mg/dL (0.7-1.3); TOTAL PROTEIN 6.2 g/dL (6.4-8.2)
[2018-12-08 07:58] VITALS: BP 144/77
[2018-12-08] MEDS: LACTULOSE 20 GM/30 ML UDC PO PRN (08:19)
[2018-12-08] MEDS: SODIUM CHLORIDE FLUSH 10ML SYR IVF SCH ×2 (08:21→21:17)
[2018-12-08] MEDS: INSULIN LISPRO 100 UNITS/ML, PEN SQ-INSULIN SCH (09:05)
[2018-12-08 13:03] VITALS: BP 133/80
[2018-12-08 14:07] LABS: ANA SCREEN NEGATIVE (Negative)
[2018-12-08] MEDS: LACTULOSE 20 GM/30 ML UDC PO SCH ×2 (16:09→21:16)
[2018-12-08] MEDS: SPIRONOLACTONE 25 MG TABLET PO SCH (16:10)
[2018-12-08] MEDS: LEVOTHYROXINE 75 MCG TABLET PO SCH (16:10)
[2018-12-08 18:47] VITALS: BP 156/82
[2018-12-09 00:25] VITALS: BP 149/81
[2018-12-09] MEDS: LEVOTHYROXINE 75 MCG TABLET PO SCH (04:59)
[2018-12-09] MEDS: LACTULOSE 20 GM/30 ML UDC PO SCH ×3 (04:59→16:03)
[2018-12-09] MEDS: HEPARIN 5,000 UNITS/ML, 1ML SQ SCH ×2 (05:00→11:54)
[2018-12-09 05:56] LABS: ALBUMIN 2.9 g/dL (3.4-5.0); ANION GAP 8 mmol/L (5-15); CALCIUM 8.1 mg/dL (8.5-10.1); CHLORIDE 110 mmol/L (98-107)
[2018-12-09 06:01] LABS: ALANINE AMINOTRANSFERASE 22 U/L (12-78); ALKALINE PHOSPHATASE 95 U/L (45-117); BILIRUBIN,TOTAL 1.7 mg/dL (0.2-1.0); CREATININE 0.59 mg/dL (0.7-1.3); TOTAL PROTEIN 6.1 g/dL (6.4-8.2)
[2018-12-09] MEDS: POTASSIUM CHLORIDE 10 MEQ in D5%-0.45% NACL 1,000 ML IV SCH (06:30)
[2018-12-09 07:42] VITALS: BP 143/76
[2018-12-09] MEDS: SPIRONOLACTONE 25 MG TABLET PO SCH (08:40)
[2018-12-09] MEDS: LACTULOSE 20 GM/30 ML UDC PO PRN (08:41)
[2018-12-09] MEDS: SODIUM CHLORIDE FLUSH 10ML SYR IVF SCH (08:42)
[2018-12-09] MEDS ORDERED: LACT20SO13 PO (10:58)
[2018-12-09 13:32] VITALS: BP 133/90
== END 2018-12-09 17:00 | disposition home or self-care (01) | DRG 432 ==
LOC: ED 11:30 → EDIP 13:25 → 3NE 14:37 → 4WST 18:06 → DCLOUNGE 12-09 16:03
PROVIDERS: ADMIT Internal Medicine; ATTEND Internal Medicine
PROC: 0T9B70Z Drainage of Bladder with Drainage Device, Via Natural or Artificial Opening (ICD-10-PCS; principal; 2018-12-05)
DX: K70.41 Alcoholic hepatic failure with coma (principal); G92 Toxic encephalopathy; N39.0 Urinary tract infection, site not specified; D69.59 Other secondary thrombocytopenia; E11.9 Type 2 diabetes mellitus without complications; F31.9 Bipolar disorder, unspecified; I11.0 Hypertensive heart disease with heart failure; I27.20 Pulmonary hypertension, unspecified; I50.9 Heart failure, unspecified; Z88.0 Allergy status to penicillin; Z88.8 Allergy status to other drugs, medicaments and biological substances; I89.1 Lymphangitis; K70.30 Alcoholic cirrhosis of liver without ascites; K80.20 Calculus of gallbladder without cholecystitis without obstruction; R09.02 Hypoxemia; Z79.84 Long term (current) use of oral hypoglycemic drugs; Z82.49 Family history of ischemic heart disease and other diseases of the circulatory system; Z83.3 Family history of diabetes mellitus; Z87.891 Personal history of nicotine dependence
CPT/HCPCS: 36415; 36600; 70450; 71045; 76700; 80053; 80307; 81001; 82010; 82140; 82390; 82607; 82728; 82803; 82962; 83516; 83540; 83550; 83605; 83735; 83880; 84100; 84443; 85025; 85610; 85730; 86038; 87040; 87086; 93005; 99291; G0378; J0696; J1644; J3480

== ENCOUNTER 2018-12-26 12:20 | Emergency (ER) | payer MEDICAID ==
[~2018-12-26] VITALS: Ht 185.4 cm; Wt 122.0 kg
[~2018-12-26 12:20] MED LIST changes: +BUPR150T73 PO; +CARI3CAP PO; +LACT20SO13 PO; +METO25TA35 PO; +NALT50TA PO; +RISP4TAB2 PO
[2018-12-26 12:27] VITALS: BP 95/53
--- NOTE | 2018-12-26 12:43 | NUR ---
VERICOSE VEIN LIKE WOUND, ACTIVE BLEEDING AT HOME, EMS PUT PRESSURE DRESSING TO CONRTOL BLEEDING. ESTIMATED 50CC OF BLOOD LOSS. PT REPORTS HE WAS SCRATCHING HIS LEG AND STARTED BLEDDING, WAS UNABLE TO CONTROL. EMS CONTROLLED WITH A PRESSURE DRESSING. PEDAL PULSE TO RIGHT LOWER LEG WHERE INJURY IS PRESENT. PT CONNECTED TO MONITORS AND CALL LIGHT IN REACH. AWAITING FURTHER ORDERS.
--- NOTE | 2018-12-26 12:59 | NUR ---
PT AMBULATED WITHOPUT DIFFICULTY, PRESSURE DRESSING SHOWING NO S/SX OF BLEEDING. PT REPORTS NO DIFFICULTY AMBULATING. PTS VSS
--- NOTE | 2018-12-26 13:59 | NUR ---
Patient/Caregiver given discharge instructions and they have confirmed that they understand the instructions. Patient ambulatory with steady gait.
== END 2018-12-26 14:00 | disposition home or self-care (01) ==
LOC: ED 12:40
DX: R58 Hemorrhage, not elsewhere classified (principal); M79.604 Pain in right leg
CPT/HCPCS: 99283

== ENCOUNTER 2019-02-08 12:21 | Emergency (ER) | payer MEDICAID ==
[~2019-02-08] VITALS: Ht 185.4 cm; Wt 120.0 kg
[2019-02-08 14:32] VITALS: BP 134/77
== END 2019-02-08 15:08 | disposition home or self-care (01) ==
LOC: ED 13:38
DX: E86.0 Dehydration (principal); F20.9 Schizophrenia, unspecified; I10 Essential (primary) hypertension; Z72.9 Problem related to lifestyle, unspecified
CPT/HCPCS: 36415; 80048; 82040; 84484; 85025; 93005; 96360; 99284; J7040